=== PATIENT | female | born 1960 | race Caucasian/White ===

== ENCOUNTER 2017-12-24 08:34 | Emergency (ER) | payer OTHER ==
[2017-12-24] MEDS: BENOXINATE/FLUORESCEIN DROPS LEFT EYE (09:57)
[2017-12-24] MEDS: TETRACAINE 0.5% 4 ML OPH LEFT EYE (09:57)
== END 2017-12-24 10:20 | disposition home or self-care (01) ==
LOC: FTE 08:34
DX: H57.12 Ocular pain, left eye (principal)
CPT/HCPCS: 99283; Z7502